=== PATIENT | female | born 1995 | race Hispanic/Latino ===

== ENCOUNTER → 2022-08-19 | Day surgery (SDC) | payer BC ==
[~2022-08-19] MED LIST: Acetaminophen 500 MG TAB ONE; Iron Sucrose Complex 500 MG in Sodium Chloride 0.9% 250 ML 250 ML IVPB SCH
== END ==
LOC: CSHSDC 13:08
PROVIDERS: ATTEND Obstetrics & Gynecology
DX: O99.019 Anemia complicating pregnancy, unspecified trimester (principal); D64.9 Anemia, unspecified; Z3A.00 Weeks of gestation of pregnancy not specified
CPT/HCPCS: J1756; J7050

== ENCOUNTER 2022-09-19 08:29 | Day surgery (SDC) | payer BC ==
[2022-09-19] MEDS ORDERED: Acetaminophen 500 MG TAB ONE (08:53)
[2022-09-19] MEDS ORDERED: Acetaminophen 500 MG TAB PO SCH (09:15)
[2022-09-19] MEDS ORDERED: Iron Sucrose Complex 500 MG in Sodium Chloride 0.9% 250 ML 250 ML IVPB SCH (09:45)
== END 2022-09-19 13:49 | disposition home or self-care (01) ==
LOC: CSHSDC/OP 08:29
PROVIDERS: ATTEND Obstetrics & Gynecology
DX: O99.019 Anemia complicating pregnancy, unspecified trimester (principal); D64.9 Anemia, unspecified
CPT/HCPCS: J1756; J7050